=== PATIENT | male | born 1985 | race Hispanic/Latino ===

== ENCOUNTER 2021-01-24 01:23 | Inpatient (IN) | payer SELFPAY ==
[~2021-01-24] VITALS: Ht 172.7 cm; Wt 85.6 kg
[2021-01-24 01:51] LABS: APPEARANCE,URINE Clear (CLEAR); BILIRUBIN,URINE Negative (NEGATIVE); COLOR,URINE Yellow (YELLOW); GLUCOSE, URINE (UA) >=1000 mg/dL (NEGATIVE); KETONES,URINE Negative (NEGATIVE); LEUKOCYTE ESTERASE ,URINE Negative (NEGATIVE); NITRATE,URINE Negative (NEGATIVE); OCCULT BLOOD,URINE Negative (NEGATIVE); PROTEIN,URINE Trace mg/dL (NEGATIVE); UROBILINOGEN,URINE 0.2 mg/dL (0.2-1.0)
[2021-01-24 02:22] LABS: BASOPHILS % (AUTO) 0.7 % (0.0-5.0); EOSINOPHILS % (AUTO) 2.1 % (0.0-8.0); HEMATOCRIT 43.5 % (42-54); LYMPHOCYTES % (AUTO) 23.2 % (21.0-51.0); MEAN CORPUSCULAR HEMOGLOBIN 30.4 pg (27.0-33.0); MEAN CORPUSCULAR HGB CONC 34.9 g/dL (32.0-36.0); MONOCYTES % (AUTO) 10.1 % (3.0-13.0); NEUTROPHILS % (AUTO) 63.5 % (40.0-77.0); PLATELET COUNT (AUTO) 259 K/uL (130-400); RED CELL DISTRIBUTION WIDTH 11.7 % (11.0-15.5); WHITE BLOOD COUNT (AUTO) 10.8 K/uL (4.8-10.8)
[2021-01-24] MEDS ORDERED: MORPHINE 4 MG SYG IV ONE (02:30)
[2021-01-24] MEDS ORDERED: CEFTRIAXONE 1G VIAL IVP ONE (02:30)
[2021-01-24] MEDS ORDERED: AZITHROMYCIN 250 MG TABLET PO ONE (02:30)
[2021-01-24] MEDS ORDERED: KETOROLAC 15MG/ML VIAL (15MG/ML) IV ONE (02:30)
[2021-01-24] MEDS ORDERED: PENICILLIN G BENZATHINE LA 1.2 MILUNITS/2 ML SYG IM ONE (02:30)
[2021-01-24 02:48] LABS: BACTERIA,URINE Rare /HPF (None Seen); RBC,URINE 0-1 /HPF (0-1); SQUAMOUS EPITHELIAL CELL,UR 0-2 /HPF (0-2)
[2021-01-24 02:48] LABS: ALBUMIN 3.8 g/dL (3.5-5.0); BILIRUBIN,TOTAL 0.3 mg/dL (0.2-1.0); CREATININE 1.1 mg/dL (0.5-1.5); POTASSIUM 3.8 mmol/L (3.5-5.1); TOTAL PROTEIN, SERUM 7.6 g/dL (6.0-8.3)
[2021-01-24] MEDS ORDERED: CLOTRIMAZOLE 30 GM CREAM.GM. TP STA (03:19)
[2021-01-24] MEDS ORDERED: 0.9%NACL 1000ML 1,000 ML IV ONE (03:30)
[2021-01-24] MEDS ORDERED: INSULIN HUMULIN R 100 UNIT/ML 3ML IV ONE (03:30)
[2021-01-24] MEDS ORDERED: CLOTRIMAZOLE 30 GM CREAM.GM. TP ONE (04:34)
[2021-01-24] MEDS ORDERED: ONDANSETRON 4MG INJ IV PRN (06:00)
[2021-01-24] MEDS ORDERED: NITROGLYCERIN 0.4 MG SL TAB SL PRN (06:00)
[2021-01-24] MEDS ORDERED: DEXTROSE 50%-WATER 50 ML DISP.SYRIN IV PRN (06:00)
[2021-01-24] MEDS ORDERED: ACETAMINOPHEN 325 MG TAB PO PRN ×2 (06:00)
[2021-01-24] MEDS ORDERED: 0.9%NACL 1000ML 1,000 ML IV SCH (06:00)
[2021-01-24] MEDS ORDERED: GLUCAGON 1MG KIT 1 MG ML IM PRN (06:00)
[2021-01-24 06:10] LABS: HEMOGLOBIN A1C 11.5 % (4.0-6.0)
[2021-01-24] MEDS: 0.9%NACL 1000ML 1,000 ML IV SCH ×2 (06:35→16:00)
[2021-01-24] MEDS: INSULIN HUMULIN R 100 UNIT/ML 3ML SQ SCH ×4 (08:07→20:43)
[2021-01-24] MEDS: FAMOTIDINE 20MG TAB PO SCH ×2 (08:34→20:24)
[2021-01-24] MEDS: ENOXAPARIN SODIUM 40 MG/0.4 ML SYRINGE SQ SCH (08:35)
[2021-01-24 10:09] VITALS: BP 157/85
[2021-01-24] MEDS ORDERED: MORPHINE 2 MG SYG ONE (11:47)
[2021-01-24] MEDS: MORPHINE 2 MG SYG IVP PRN (11:57)
[2021-01-24 12:00] VITALS: BP 149/95
[2021-01-24 13:13] LABS: RAPID PLASMA REAGIN NONREACTIVE (NONREACTIVE)
[2021-01-24 14:36] LABS: AMPHET/METH SCREEN,URINE NEGATIVE (NEGATIVE); BARBITURATE SCREEN, URINE NEGATIVE (NEGATIVE); BENZODIAZEPINES SCREEN,URINE NEGATIVE (NEGATIVE); CANNABINOID SCREEN,URINE POSITIVE (NEGATIVE); COCAINE SCREEN,URINE NEGATIVE (NEGATIVE); OPIATE SCREEN,URINE NEGATIVE (NEGATIVE); PHENCYCLIDINE SCREEN,URINE NEGATIVE (NEGATIVE)
[2021-01-24] MEDS ORDERED: MORPHINE 4 MG SYG ONE (15:53)
[2021-01-24 16:00] VITALS: BP 148/83
[2021-01-24] MEDS ORDERED: COMPOUND IV REFRIGERATED 1 EACH IVSOLN MISC PRN (16:30)
[2021-01-24] MEDS ORDERED: MORPHINE 4 MG SYG IV PRN (16:30)
[2021-01-24 20:00] VITALS: BP 144/90
[2021-01-24] MEDS: CEFTRIAXONE 1G VIAL IVP SCH (20:23)
[2021-01-25] VITALS (7 sets, daily range): BP systolic 134–155; BP diastolic 76–103
[2021-01-25] MEDS: 0.9%NACL 1000ML 1,000 ML IV SCH ×3 (02:00→21:23)
[2021-01-25 04:59] LABS: BASOPHILS % (AUTO) 0.6 % (0.0-5.0); EOSINOPHILS % (AUTO) 2.1 % (0.0-8.0); HEMATOCRIT 44.7 % (42-54); LYMPHOCYTES % (AUTO) 23.2 % (21.0-51.0); MEAN CORPUSCULAR HEMOGLOBIN 29.4 pg (27.0-33.0); MEAN CORPUSCULAR HGB CONC 33.3 g/dL (32.0-36.0); MEAN CORPUSCULAR VOLUME 88.3 fL (79-99); MONOCYTES % (AUTO) 10.4 % (3.0-13.0); NEUTROPHILS % (AUTO) 63.1 % (40.0-77.0); PLATELET COUNT (AUTO) 260 K/uL (130-400); RED BLOOD CELL COUNT(AUTO) 5.06 MIL/uL (4.50-6.20); RED CELL DISTRIBUTION WIDTH 11.8 % (11.0-15.5); WHITE BLOOD COUNT (AUTO) 12.6 K/uL (4.8-10.8)
[2021-01-25 05:13] LABS: ALBUMIN 3.5 g/dL (3.5-5.0); BILIRUBIN,TOTAL 0.5 mg/dL (0.2-1.0); CREATININE 0.9 mg/dL (0.5-1.5); MAGNESIUM 1.9 mg/dL (1.80-2.40); POTASSIUM 3.6 mmol/L (3.5-5.1)
[2021-01-25] MEDS: INSULIN HUMULIN R 100 UNIT/ML 3ML SQ SCH ×4 (06:03→21:19)
[2021-01-25] MEDS: LIDOCAINE HCL 2% JELLY 5 ML TP PRN ×2 (06:18→08:48)
[2021-01-25] MEDS: FAMOTIDINE 20MG TAB PO SCH ×2 (08:44→21:15)
[2021-01-25] MEDS: ENOXAPARIN SODIUM 40 MG/0.4 ML SYRINGE SQ SCH (08:45)
[2021-01-25] MEDS: CEFTRIAXONE 1G VIAL IVP SCH (21:13)
[2021-01-26 03:57] VITALS: BP 160/88
[2021-01-26 04:34] LABS: HEMATOCRIT 45.2 % (42-54); MEAN CORPUSCULAR HEMOGLOBIN 29.7 pg (27.0-33.0); MEAN CORPUSCULAR HGB CONC 33.8 g/dL (32.0-36.0); MEAN CORPUSCULAR VOLUME 87.8 fL (79-99); RED BLOOD CELL COUNT(AUTO) 5.15 MIL/uL (4.50-6.20); RED CELL DISTRIBUTION WIDTH 11.7 % (11.0-15.5); WHITE BLOOD COUNT (AUTO) 10.6 K/uL (4.8-10.8)
[2021-01-26 04:41] LABS: CREATININE 0.9 mg/dL (0.5-1.5); POTASSIUM 3.6 mmol/L (3.5-5.1)
[2021-01-26] MEDS: MORPHINE 2 MG SYG IVP PRN (04:56)
[2021-01-26] MEDS: INSULIN HUMULIN R 100 UNIT/ML 3ML SQ SCH ×2 (06:38→12:15)
[2021-01-26 07:25] VITALS: BP 150/84
[2021-01-26] MEDS: ENOXAPARIN SODIUM 40 MG/0.4 ML SYRINGE SQ SCH (09:29)
[2021-01-26] MEDS: FAMOTIDINE 20MG TAB PO SCH (09:29)
[2021-01-26] MEDS: 0.9%NACL 1000ML 1,000 ML IV SCH (09:30)
[2021-01-26 11:20] VITALS: BP 124/91
[2021-01-26] MEDS ORDERED: METF-444 PO (13:10)
[2021-01-26] MEDS ORDERED: GLIM1TAB18 PO (13:10)
[2021-01-26] MEDS ORDERED: LOSA25TA41 PO (15:31)
== END 2021-01-26 17:13 | disposition home or self-care (01) | DRG 728 ==
LOC: EDH 01:23 → OBSVTOIN 01:24 → EDHIP 01:24 → 3DH 08:28
PROVIDERS: ADMIT Hospitalist; ATTEND Hospitalist
DX: N47.2 Paraphimosis (principal); E87.1 Hypo-osmolality and hyponatremia; A74.9 Chlamydial infection, unspecified; E11.65 Type 2 diabetes mellitus with hyperglycemia; F12.90 Cannabis use, unspecified, uncomplicated; N48.89 Other specified disorders of penis; Z20.822 Contact with and (suspected) exposure to COVID-19; E11.22 Type 2 diabetes mellitus with diabetic chronic kidney disease; I12.9 Hypertensive chronic kidney disease with stage 1 through stage 4 chronic kidney disease, or unspecified chronic kidney disease; N18.9 Chronic kidney disease, unspecified
CPT/HCPCS: 36415; 80048; 80053; 80305; 81001; 82948; 83036; 83735; 85025; 85027; 86592; 86701; 87088; 87390; 87486; 87635; 87797; G0378; J0561; J0696; J1650; J1815; J1885; J2270